=== PATIENT | male | born 1990 | race Caucasian/White ===

== ENCOUNTER 2023-11-03 10:37 | Emergency (ER) | payer OTHER ==
[~2023-11-03] VITALS: Ht 185.4 cm; Wt 104.3 kg
[2023-11-03 10:40] VITALS: BP 152/90; PULSE 69; RESP 18; TEMP 97.9; O2SAT 96
[2023-11-03 11:19] LABS: BASOPHIL % 0.3 % (0.0-0.2); EOSINOPHIL # 0.1 10^3/uL (0.0-0.2); EOSINOPHIL % 2.1 % (0.0-5.0); HEMATOCRIT(ML) 46.2 % (37.0-53.0); HEMOGLOBIN 16.2 g/dL (13.9-16.3); LYMPHOCYTES # 1.93 10^3/uL1 (1.0-4.8); LYMPHOCYTES % 29.5 % (24.0-44.0); MEAN CORP HGB 31.4 pg (26-34); MEAN CORP HGB CONCENTRATION 35.1 g/dL (33-36.5); MEAN CORP VOLUME 89.5 fL (78-100); MONOCYTES # 0.6 10^3/uL (0.3-0.8); MONOCYTES % 8.6 % (5.0-12.0); NEUTROPHIL # 3.9 10^3/uL (1.8-7.7); NEUTROPHILS % 59.2 % (41.0-85.0); PLATELET COUNT 139 10^3/uL (150-400); RED BLOOD CELL 5.16 10^6/uL (4.50-5.90); RED CELL DISTRIBUTION WIDTH 12.1 % (11.5-14.5); WHITE BLOOD CELL 6.5 10^3/uL (4.5-11.0)
[2023-11-03 11:39] VITALS: BP 144/86; PULSE 59; RESP 18; TEMP 97.9; O2SAT 96
[2023-11-03 11:39] LABS: +ADD MANUAL DIFF(NO CHRG) NO
[2023-11-03 11:40] LABS: ALBUMIN(ML) 2.5 g/dL (3.4-5.0); ALBUMIN/GLOBULIN RATIO 0.543; ANION GAP 13.5; BUN/CREATININE RATIO 15.17 (10.0-20.0); CALCIUM 8.9 mg/dL (8.4-10.5); CARBON DIOXIDE 26.3 mmol/L (20.0-32); CREATININE SERUM 1.12 mg/dL (0.59-1.40); EST GFR, NON-AA 75.1 (>/=60); POTASSIUM 3.8 mmol/L (3.6-5.2)
[2023-11-03 12:01] VITALS: BP 146/98; PULSE 57; RESP 18; TEMP 97.9; O2SAT 96
== END 2023-11-03 12:15 | disposition home or self-care (01) ==
LOC: ER 10:37
DX: R03.0 Elevated blood-pressure reading, without diagnosis of hypertension (principal); Z88.1 Allergy status to other antibiotic agents
CPT/HCPCS: 36415; 71045; 80053; 82550; 84484; 85025; 85379; 93005; 99285